=== PATIENT | male | born 1970 | race Caucasian/White ===

== ENCOUNTER 2019-10-01 12:17 | Inpatient (IN) | payer MEDICARE ==
[~2019-10-01] VITALS: Ht 172.7 cm; Wt 102.7 kg
[2019-10-01] MEDS ORDERED: CLON1TAB8 PO (12:34)
[2019-10-01] MEDS ORDERED: CYMB60CA3 PO (12:34)
[2019-10-01] MEDS ORDERED: METH2.5T48 PO (12:34)
[2019-10-01] MEDS ORDERED: GEOD40CA13 PO (12:34)
[2019-10-01] MEDS ORDERED: RISP1TAB42 PO (12:34)
[2019-10-01] MEDS ORDERED: DIAL800T3 PO (12:34)
[2019-10-01] MEDS ORDERED: LAMI1TAB8 PO (12:34)
[2019-10-01 13:10] LABS: HEMOGLOBIN 15.6 g/dl (13.5-17.5); MEAN CORPUSCULAR HEMOGLOBIN 31.9 pg (27.0-33.0); MEAN CORPUSCULAR HGB CONC 33.2 g/dl (32.0-36.5); MEAN CORPUSCULAR VOLUME 96.1 fl (80.0-96.0); PLATELET COUNT, AUTOMATED 168 10^3/uL (150-450); RED BLOOD COUNT 4.89 10^6/uL (4.30-6.10); WHITE BLOOD COUNT 7.6 10^3/uL (4.0-10.0)
[2019-10-01 13:32] LABS: AMPHETAMINES LEVEL URINE NEGATIVE (NEGATIVE); BARBITURATES URINE NEGATIVE (NEGATIVE); BENZODIAZEPINES URINE NEGATIVE (NEGATIVE); CANNABINOIDS URINE NEGATIVE (NEGATIVE); COCAINE METABOLITE URINE NEGATIVE (NEGATIVE); METHADONE URINE NEGATIVE (NEGATIVE); OPIATES URINE NEGATIVE (NEGATIVE); PHENCYCLIDINE URINE NEGATIVE (NEGATIVE)
[2019-10-01 13:40] LABS: ACETAMINOPHEN LEVEL < 2.0 UG/ML (10.0-30.0); ALBUMIN 4.2 GM/DL (3.2-5.2); ALT/SGPT 43 U/L (12-78); BILIRUBIN,DIRECT 0.1 MG/DL (0.0-0.2); BILIRUBIN,TOTAL 0.4 MG/DL (0.2-1.0); BLOOD UREA NITROGEN 13 MG/DL (7-18); CALCIUM LEVEL 9.5 MG/DL (8.5-10.1); CARBON DIOXIDE LEVEL 28 MEQ/L (21-32); CHLORIDE LEVEL 105 MEQ/L (98-107); CREATININE FOR GFR 1.33 MG/DL (0.70-1.30); ETHYL ALCOHOL (ETHANOL) < 0.003 % (0.000-0.010); GLOMERULAR FILTRATION RATE > 60.0 (>60); GLUCOSE, FASTING 90 MG/DL (70-100); POTASSIUM SERUM 4.5 MEQ/L (3.5-5.1); SALICYLATE LEVEL < 1.7 MG/DL (5.0-30.0); SODIUM LEVEL 139 MEQ/L (136-145); TOTAL PROTEIN 7.3 GM/DL (6.4-8.2)
[2019-10-01] MEDS ORDERED: FOLI1TAB11 PO (17:17)
[2019-10-01] MEDS ORDERED: ZIPR80CA12 PO (17:17)
[2019-10-01] MEDS ORDERED: NICOTINE 21MG/24HR 1 EA TRANSDERMAL TD PRN (21:15)
[2019-10-01] MEDS ORDERED: MOM 30ML SUSPENSION UDC PO PRN (21:15)
[2019-10-01] MEDS ORDERED: ACETAMINOPHEN TAB 650MG DOSE (2X325MG) PO PRN (21:15)
[2019-10-01] MEDS ORDERED: MAALOX 30 ML SUSP *UDC PO PRN (21:15)
[2019-10-01] MEDS ORDERED: traZODone 50 MG TAB PO PRN (21:15)
[2019-10-02] MEDS ORDERED: cloNIDine 0.05MG PER 1/2 TABLET PO ONE (00:15)
[2019-10-02 00:56] VITALS: BP 168/89
[2019-10-02 06:36] VITALS: BP 160/90
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
[2019-10-02] MEDS ORDERED: INFLUENZA QUADRIVALENT PF VACCINE 0.5ML SYRINGE (90686) IM ONE (09:00)
[2019-10-02] MEDS: cloNIDine 0.05MG PER 1/2 TABLET PO SCH ×2 (09:54→20:54)
[2019-10-02] MEDS ORDERED: clonazePAM 1 MG TAB PO PRN (10:45)
[2019-10-02] MEDS: ZIPRASIDONE 80 MG CAP (GEODON) PO SCH ×2 (11:24→20:54)
[2019-10-02] MEDS: FOLIC ACID 1 MG TAB PO SCH (11:25)
[2019-10-02] MEDS: risperiDONE 1 MG TAB PO SCH ×2 (11:25→20:54)
[2019-10-02] MEDS: DULoxetine 30 MG CAP (CYMBALTA) PO SCH (11:25)
[2019-10-02] MEDS ORDERED: lamoTRIgine 100MG TAB PO ONE (12:00)
[2019-10-02 16:25] VITALS: BP 142/77
[2019-10-03 07:08] VITALS: BP 162/80
[2019-10-03 08:42] VITALS: BP 148/73
[2019-10-03] MEDS: ZIPRASIDONE 80 MG CAP (GEODON) PO SCH (08:42)
[2019-10-03] MEDS: cloNIDine 0.05MG PER 1/2 TABLET PO SCH (08:42)
[2019-10-03] MEDS: FOLIC ACID 1 MG TAB PO SCH (08:42)
[2019-10-03] MEDS: risperiDONE 1 MG TAB PO SCH (08:42)
[2019-10-03] MEDS: DULoxetine 30 MG CAP (CYMBALTA) PO SCH (08:42)
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
== END 2019-10-03 13:00 | disposition home or self-care (01) | DRG 885 ==
LOC: M ED 12:17 → M ED INP 21:06 → M PSY 22:32
PROVIDERS: ADMIT Psychiatry & Neurology Addiction Medicine; ATTEND Psychiatry & Neurology Psychiatry
DX: F33.1 Major depressive disorder, recurrent, moderate (principal); R45.851 Suicidal ideations; F31.81 Bipolar II disorder; F41.1 Generalized anxiety disorder; F43.21 Adjustment disorder with depressed mood; Z79.899 Other long term (current) drug therapy; Z88.8 Allergy status to other drugs, medicaments and biological substances; G47.33 Obstructive sleep apnea (adult) (pediatric); M54.5 Low back pain; M06.9 Rheumatoid arthritis, unspecified